=== PATIENT | male | born 1945 | race American Indian/Alaskan Native ===

== ENCOUNTER → 2018-02-11 | Outpatient (CLI) | payer SELFPAY ==
[2015-05-17 15:56] VITALS: BMI 25.2
[~2018-02-11] MED LIST: ASPI-879 PO; LOVA20TA99 PO; RANI150C17 PO
--- NOTE | 2018-02-11 13:31 | RADIOLOGY IMAGING REPORT ---
FACILITY: [facility] - [place] PATIENT NAME: Silivna Rivera : 1945 MR: [id number] V: [id number] EXAM DATE: ORDERING PHYSICIAN: LARISSA CASTANON TECHNOLOGIST: Location: [facility] Patient: Silvina Rivera : 1945 Visit/Account:[id number] Date of Sevice: 02/11/2018 TESTICULAR HISTORY: Testicular pain x2 months, swelling on the left COMPARISON: None. FINDINGS: Testes: Right testicle measures 4.6 x 2.2 x 3 cm. Left testicle measures 3.8 x 2.8 x 2.4 cm Symmetr ic and unremarkable blood flow documented by color and Duplex Doppler ultrasound. Epididymides: Head epididymis on the right measures 7 x 7 x 14 mm. Head epididymis on the left measu res 7 x 15 x 10 mm Blood flow is unremarkable in each epididymis by color Doppler ultrasound. Hydrocele: There is a small right hydrocele. There is a large loculated left lateral hydrocele Varicocele: None. IMPRESSION: Small right hydrocele Large loculated left lateral hydrocele Report Dictated By: Jena Franco MD at 02/11/2018 1:25 PM Report E-Signed By: Jena Franco MD at 02/11/2018 1:27 PM WSN:[id number]
== END ==
LOC: US 09:44
PROVIDERS: ATTEND Urology
DX: N43.2 Other hydrocele (principal)
CPT/HCPCS: 76870

== ENCOUNTER → 2018-03-30 | Outpatient (REF) | payer SELFPAY ==
[2015-05-17 15:56] VITALS: BMI 25.2
[2018-03-30 10:10] LABS: PLATELET COUNT, AUTOMATED 149 K/uL (150-450)
== END ==
PROVIDERS: ATTEND Nurse Practitioner Family
DX: R07.9 Chest pain, unspecified (principal)
CPT/HCPCS: 82040; 82247; 82310; 82374; 82435; 82565; 82947; 84075; 84132; 84155; 84295; 84450; 84460; 84484; 84520; 85025